=== PATIENT | female | born 1960 | race African-American/Black ===

== ENCOUNTER 2017-06-27 15:32 | Emergency (ER) | payer BC ==
[~2017-06-27] VITALS: Ht 165.1 cm; Wt 88.4 kg
[2017-06-27 15:34] VITALS: Ht 165.1 cm; Wt 88.4 kg
[2017-06-27] MEDS ORDERED: ELIM TOP (16:32)
--- NOTE | 2017-06-27 16:35 | ERD ---
ER Documentation Chief Complaint Chief Complaint rash on arms onset today , took cake of pt with scabies HPI This patient is a 57-year-old otherwise healthy female presenting to the emergency department with complaints of rash associated with itching to her bilateral upper extremities on the ventral surface which began 2 hours ago after having contacted the patient with scabies. 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 She has had scabies one time in the past and states this feels similar. She denies any involvement of the finger or toe weddings. She denies fevers, chills, or other symptoms at this time. ROS All systems reviewed and are negative except as per history of present illness. Medications Home Meds Active Scripts Permethrin* (Elimite*) 5% Cr, 1 APPLIC TOP ONCE, #1 TUB Prov:DAMASO SOARES PA-C 06/27/17 Allergies Allergies: Coded Allergies: No Known Allergy (Unverified , 06/27/17) PMhx/Soc Medical and Surgical Hx: pt denies Medical Hx, pt denies Surgical Hx Hx Alcohol Use: No Hx Substance Use: No Hx Tobacco Use: No Smoking Status: Never smoker Physical Exam Vitals Vital Signs Date Time Temp Pulse Resp B/P Pulse Ox O2 Delivery O2 Flow Rate FiO2 06/27/17 15:34 97.9 89 18 143/87 99 Physical Exam Const: Nontoxic, well-appearing female in no acute distress. Head: Atraumatic Eyes: Normal Conjunctiva ENT: Normal External Ears, Nose and Mouth. Skin: There is mild erythema surrounding what appears to be insect bites noted to the ventral surfaces of the upper extremities bilaterally. No evidence of cellulitis. Neur: Awake and alert Psych: Normal Mood and Affect Procedures/MDM This is a pleasant 57-year-old female presenting to the emergency department complains of itching of her bilateral upper extremities. She did have contact with the patient with scabies earlier today. She states that she has had scabies once in the past, and this presentation feels similar. Physical examination does show some insect bites but no evidence of cellulitis. I am not completely convinced this is scabies at this time, however given the patient 's presentation and history and contact with a patient with known scabies, I will treat with permethrin. She is stable and appropriate for discharge and outpatient management. Low suspicion for cellulitis, sepsis, or other emergencies. No evidence of life-threatening pathology at time of discharge. Pt/family in agreement with discharge plan/diagnosis. Pt/family advised to return immediately with any new or worsening symptoms. Follow-up with primary care physician within the next 1-2 days. Departure Diagnosis: Primary Impression: Rash and other nonspecific skin eruption Condition: Fair Patient Instructions: Self-Care for Skin Rashes, Scabies Referrals: [facility] YOU HAVE RECEIVED A MEDICAL SCREENING EXAM AND THE RESULTS INDICATE THAT YOU DO NOT HAVE A CONDITION THAT REQUIRES URGENT TREATMENT IN THE EMERGENCY DEPARTMENT. FURTHER EVALUATION AND TREATMENT OF YOUR CONDITION CAN WAIT UNTIL YOU ARE SEEN IN YOUR DOCTORS OFFICE WITHIN THE NEXT 1-2 DAYS. IT IS YOUR RESPONSIBILITY TO MAKE AN APPOINTMENT FOR FOLOW-UP CARE. IF YOU HAVE A PRIMARY DOCTOR --you should call your primary doctor and schedule an appointment IF YOU DO NOT HAVE A PRIMARY DOCTOR YOU CAN CALL OUR PHYSICIAN REFERRAL HOTLINE AT IF YOU CAN NOT AFFORD TO SEE A PHYSICIAN YOU CAN CHOSE FROM THE FOLLOWING [facility] CL[facility]ICS [facility] [address] [facility]. [facility] [address] [facility] [facility] [address] [facility] [facility] [address] [facility] [facility] [address] [facility] [facility]. [address] Additional Instructions: Call your primary care doctor TOMORROW for an appointment during the next 1-2 days.See the doctor sooner or return here if your condition worsens before your appointment time. DAMASO SOARES PA-C Jun 27, 2017 16:35
== END 2017-06-27 17:05 | disposition home or self-care (01) ==
LOC: FTE 15:32
DX: R21 Rash and other nonspecific skin eruption (principal)
CPT/HCPCS: 99283